=== PATIENT | male | born 1980 | race Caucasian/White ===

== ENCOUNTER 2016-12-19 01:24 | Emergency (ER) | payer SELFPAY ==
[~2016-12-19] VITALS: Ht 185.4 cm; Wt 78.2 kg
[2016-12-19 01:26] VITALS: Ht 185.4 cm; Wt 78.2 kg
--- NOTE | 2016-12-19 03:54 | ERD ---
ER Documentation Chief Complaint Date/Time DATE: 12/19/16 TIME: 03:54 Chief Complaint bib ra 100 states been drinking vodka tonite. also c/o being shaky HPI Patient is a 36-year-old homeless male with history of asthma who presents requesting a new inhaler after he lost his previous one. He does not currently complain of shortness of breath or wheezing. He states that he drank quite a bit tonight. She denies vomiting, abdominal pain. He states that he would just like something to eat and something to help him sleep. ROS All systems reviewed and are negative except as per history of present illness. Allergies Allergies: Coded Allergies: No Known Drug Allergies (Verified Allergy, Unknown, 12/19/16) PMhx/Soc Past medical history: Asthma Past surgical history: None Social history: Homeless, drinks heavily, smokes cigarettes, smokes methamphetamine. Denies recent methamphetamine use. Medical and Surgical Hx: pt denies Surgical Hx Hx Respiratory Disorders: Yes (asthma) Hx Alcohol Use: Yes (drinking vodka tonight) Hx Substance Use: Yes (meth) Hx Tobacco Use: Yes Smoking Status: Current every day smoker FmHx Family History: No coronary disease, No diabetes Physical Exam Vitals Vital Signs Date Time Temp Pulse Resp B/P Pulse Ox O2 Delivery O2 Flow Rate FiO2 12/19/16 01:26 97.6 99 20 150/95 99 Physical Exam Const: Alert, no acute distress Head: Atraumatic Eyes: Normal Conjunctiva, no pallor or icterus ENT: Normal External Ears, Nose and Mouth. Neck: Full range of motion. No meningismus. Resp: Clear to auscultation bilaterally, no wheezes, no rales Cardio: Regular rate and rhythm, no murmurs Abd: Soft, non tender, non distended. Skin: No petechiae or rashes Back: No midline or flank tenderness Ext: No cyanosis, or edema Neur: Awake and alert, cranial nerves II through XII intact bilaterally, motor and sensory intact in 4 extremities. Psych: Normal Mood and Affect, communicative, appropriate Results 24 hrs Current Medications Medications (Trade) Dose Ordered Sig/Jay Route PRN Reason Start Time Stop Time Status Last Admin Dose Admin Diphenhydramine HCl (Benadryl) 25 mg ONCE ONCE PO 12/19/16 04:00 12/19/16 04:01 Albuterol (Ventolin Hfa) 2 puff ONCE ONCE INH 12/19/16 04:00 12/19/16 04:01 Procedures/MDM MDM: Patient is a 36-year-old man who presents to the ER with intoxication requesting food, something to help him sleep, and a refill for an albuterol inhaler. He is acting appropriately and she has capacity for self-care. He will be provided with an albuterol inhaler in the meal, and encouraged to stay in the waiting room until morning. Departure Diagnosis: Primary Impression: Asthma Asthma severity: unspecified severity Asthma complication type: uncomplicated Qualified Code: J45.909 - Uncomplicated asthma, unspecified asthma severity Additional Impression: Alcoholic intoxication Complication of substance-induced condition: uncomplicated Qualified Code: F10.120 - Alcoholic intoxication, uncomplicated Condition: Stable Patient Instructions: Asthma, Acute (Adult), Alcohol Intoxication Additional Instructions: Return to ER for other concerns. NATHANAEL NAZARIO MD Dec 19, 2016 03:54
[2016-12-19] MEDS ORDERED: ALBUTEROL HFA 8 GM INHALER INH ONE (04:00)
[2016-12-19] MEDS ORDERED: DIPHENHYDRAMINE 25 MG CAP PO ONE (04:00)
[2016-12-19 04:59] VITALS: BP 146/90; PULSE 101; RESP 18
== END 2016-12-19 05:45 | disposition home or self-care (01) ==
LOC: E/R 01:24
DX: J45.909 Unspecified asthma, uncomplicated (principal); F10.120 Alcohol abuse with intoxication, uncomplicated; R40.2142 Coma scale, eyes open, spontaneous, at arrival to emergency department; R40.2252 Coma scale, best verbal response, oriented, at arrival to emergency department; R40.2362 Coma scale, best motor response, obeys commands, at arrival to emergency department; F17.210 Nicotine dependence, cigarettes, uncomplicated